=== PATIENT | male | born 1985 | race Caucasian/White ===

== ENCOUNTER 2017-02-02 05:43 | Emergency (ER) | payer OTHER ==
--- NOTE | 2017-02-02 07:05 | ED ---
Complex/Multi-Sys Presentation - HPI Summary HPI Summary: 31M presents with tingling of extremities and racing heart today. He states he took a Flexeril and had some alcohol last night. He states he woke up to his alarm early this morning and was disorientated and rolled over in bed. He states he has a history of herniated disk and was surprised that when he rolled in bed the motion did not cause him any pain. He stated that he started to feel some tingling in his arms, behind ears and eyes. He states he looked up the symptoms of a stroke and thought he was having one. He denies any weakness or difficulty with finding words. He states he though he may have been slurring his speech a little when he woke up but that it may have been due to being tired. He has never had these symptoms before. He denies any headache. He denies any history of TIA, CVA, HTN, migraines or hypercoagulability disorder. He denies any family history of TIA or CVA. - History Of Current Complaint Chief Complaint: EDGeneral Time Seen by Provider: 02/02/17 06:33 - Allergies/Home Medications Allergies/Adverse Reactions: Allergies Allergy/AdvReac Type Severity Reaction Status Date / Time Cefaclor [From [facility]] Allergy Severe Shortness Verified 02/02/17 06:11 of Breath Penicillins Allergy Severe Shortness Verified 02/02/17 06:11 of Breath PMH/Surg Hx/FS Hx/Imm Hx Endocrine/Hematology History: Denies: Hx Diabetes Cardiovascular History: Denies: Hx Hypertension, Hx Pacemaker/ICD History: Denies: Hx Renal Disease Sensory History: Denies: Hx Hearing Aid Psychiatric History: Reports: Hx Attention Deficit Hyperactivity Disorder Denies: Hx Panic Disorder - Surgical History Surgery Procedure, Year, and Place: 1999 RT ARM SURGERY - W/ PIN BUT SINCE BEEN REMOVED Infectious Disease History: No Infectious Disease History: Denies: Traveled Outside the [place] in Last 30 Days - Family History Known Family History: Positive: Cardiac Disease, Other - no CVA - Social History Alcohol Use: Weekly Hx Substance Use: No Substance Use Type: Reports: Prescribed Hx Tobacco Use: No Smoking Status (MU): Never Smoked Tobacco Review of Systems Negative: Fever Positive: Palpitations. Negative: Chest Pain Negative: Shortness Of Breath Neurological: Other - tingling Negative: Headache All Other Systems Reviewed And Are Negative: Yes Physical Exam Triage Information Reviewed: Yes Vital Signs On Initial Exam: Initial Vitals Temp Pulse Resp BP Pulse Ox 96.8 F 86 14 116/74 97 02/02/17 05:47 02/02/17 05:47 02/02/17 05:47 02/02/17 05:47 02/02/17 05:47 Vital Signs Reviewed: Yes Appearance: Positive: Well-Appearing - anxious Skin: Positive: Warm, Dry Head/Face: Positive: Normal Head/Face Inspection Eyes: Positive: Normal, Conjunctiva Clear ENT: Positive: Normal ENT inspection, Pharynx normal, TMs normal Respiratory/Lung Sounds: Positive: Clear to Auscultation, Breath Sounds Present Cardiovascular: Positive: Normal, RRR Neurological: Positive: Sensory/Motor Intact, Alert, Oriented to Person Place, Time, CN Intact II-III, Normal Gait, Heel to Toe, Finger to Nose, Speech Normal. Negative: Facial Droop, Slurred Speech, Pronator Drift Present Psychiatric: Positive: Anxious - [place] Coma Scale Best Eye Response: 4 - Spontaneous Best Motor Response: 6 - Obeys Commands Best Verbal Response: 5 - Oriented Diagnostics - Vital Signs Vital Signs Temp Pulse Resp BP Pulse Ox 02/02/17 06:30 86 118/70 97 02/02/17 06:04 84 112/67 94 02/02/17 06:01 85 97 02/02/17 05:47 96.8 F 86 14 116/74 97 - Laboratory Lab Statement: Any lab studies that have been ordered have been reviewed, and results considered in the medical decision making process. Complex Multi-Symp Course/Dx Course Of Treatment: 31M presents with tingling in extremities, racing heart that started when woke up and increased when research signs of stroke. when was reassured by EMS stated that patient at first wanted a full work up but then after discussing with EMS that had negative [place] stroke scale states symptoms resolved. then in waiting room states became anxious and symptoms return. states when got back to room symptoms resolved again. states has presentation today that is anxious about. normal neuro exam. no risks factors for TIA or ACS. did mix flexeril and ETOH last night. discussed with patient and at first patient wanted full work up and then patient talked with mom and did to decline and labs, ekg, or CT. told to follow up with primary in couple days to make sure symptoms resolve but expect it is all anxiety related. patient understands and agrees with plan - Diagnoses Differential Diagnoses/HQI/PQRI: Cardiac Ischemia, CVA, Metabolic Abnormality, Urinary Tract Infection Provider Diagnoses: Anxiety Discharge - Discharge Plan Condition: Stable Disposition: HOME Patient Education Materials: Anxiety (ED) Referrals: Ángel Haas MD [Primary Care Provider] - Additional Instructions: Do not mix alcohol with muscle relaxers Follow up with primary care physician within 3 days Practice relaxation techniques and mediate to help with anxiety Return to ED if develop any new or worsening symptoms
[2017-02-02 07:38] VITALS: BP 122/72
== END 2017-02-02 07:38 | disposition home or self-care (01) ==
LOC: ED 05:43
DX: R00.2 Palpitations (principal); F41.9 Anxiety disorder, unspecified
CPT/HCPCS: 99282